=== PATIENT | male | born 1945 | race Caucasian/White ===

== ENCOUNTER 2024-04-20 14:41 | Outpatient (CLI) | payer MEDICARE, SELFPAY ==
--- NOTE | ~2024-04-20 | XR_ITS ---
EXAMINATION: XR_CERV2-3V_CR DATE: 04/20/2024 14:59 INDICATION: Neck pain. TECHNIQUE: 4 views of cervical spine were obtained. COMPARISON: None. FINDINGS: There is 7 degrees levocurvature of cervicothoracic spine kyphosis of cervical spine. There is 2 mm retrolisthesis of C5 on C6. Vertebral body heights are normal. There is mildly decreased dis c height at C3-C4 and C4-C5 and severely decreased disc height at C5-C6. 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 There is mild central stenosis at C4-C5 and C5-C6. No prevertebral soft ti ssue swelling. IMPRESSION: 1. Severe cervical spondylosis. Reviewed, dictated and finalized at location A. RANCE AUDITOR
== END 2024-04-20 14:42 | disposition home or self-care (01) ==
LOC: MICIMG 14:42
PROVIDERS: PCP Family Medicine; Visit Provider Family Medicine
DX: M43.02 Spondylolysis, cervical region (principal)
CPT/HCPCS: 72040

== ENCOUNTER 2024-08-26 13:47 | Outpatient (CLI) | payer MEDICARE, SELFPAY ==
--- OUTSIDE RECORDS SUMMARY | 2024-08-26 13:51 | XMS_ITS | Encounter Summary ---
Author Organization [facility] Address [address] [facility] [place] [address] Care Team Providers Care Pediatric Medical Assistant Name Role Phone Unavailable Primary Care Provider Unavailabl e Encounter Details Date Type Department Care Team (Late st Contact Info) Description 02/05/2024 Lab Requisition [facility] - DermPath Lab [address] [place] [phone] Masood Mortensen MD [facility] [address] [place] [phone] Neoplasm of uncertain behavior of skin Social History Tobacco Use Types Packs/Day Years Used Date Smoking Tobacco: Never Assessed Sex and Gender Information Value Date Recorded Sex Assigned at Not on file Gender Identity Not on file Sexual Orientation Not on file documented as of this encounter Plan of Treatment Not on file documented as of this encounter Procedures Procedure Name Priority Date/Time Associated Diagnosis Comments DERMATOPATHOLOGY Routine 02/05/2024 3:33 AM CDT Neoplasm of uncertain behavior of skin documented in this encounter Results * DERMATOPATHOLOGY (02/05/2024 3:33 AM CDT) Case Report Dermatopathology Report Case: [id number] Authorizing Provider: Masood Mortensen MD Collected: 02/05/2024 03:33 AM Ordering Location: [facility] Physician [facility] - Received: 02/08/2024 12:30 PM DermPath Lab Pathologist: Josephine Graves MD Specimen: Skin, right anterior neck 12:47 PM CDT DERMATOPATHOLOGY LABORATORY Final Diagnosis Specimen A. 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 The specimen consists of a shave biopsy measuring 5x4x2 mm. Jar 0. 12:47 PM CDT DERMATOPATHOLOGY LABORATORY Microscopic Description Specimen A. SKIN, right anterior neck: The epidermis shows parakeratosis, full thickness disorderly maturation of keratinocytes, mitoses at different levels, and dyskeratotic cells. The lesion extends to the base of the biopsy. COMMENT: An invasive squamous cell carcinoma cannot be ruled out. 12:47 PM CDT DERMATOPATHOLOGY LABORATORY Disclaimer An external and internal positive and negative controls are appropriate for the histochemical, immunohistochemical and immunofluorescence stain(s) in this case (if any), except where stated explicitly. The performance characteristics of the stain(s) cited in this report were developed and its performance characteristic determined by the Dermatopathology Laboratory at [facility], directed by Dr. Suze Arriaga. These tests need not be, and therefore are not, approved by the [place] Food and Drug Administration. The tests are used for clinical purposes. Billing Codes Specimen Charges Stain Charges 33124 1 12:47 PM CDT DERMATOPATHOLOGY LABORATORY Embedded Images 12:47 PM CDT DERMATOPATHOLOGY LABORATORY Pathology/Cytolo gy TISSUE SPECIMEN FROM SKIN / Unknown 02/05/2024 3:33 AM CDT 02/08/2024 12:30 PM CDT Masood Mortensen MD LAB - PATHOLOGY/CYTO LOGY ORDERABLES DERMATOPATHOLOGY LABORATORY [facility] - Department of Dermatology [address] [place] [address], [facility] [phone] documented in this encounter Visit Diagnoses Diagnosis Neoplasm of uncertain behavior of skin documented in this encounter
--- OUTSIDE RECORDS SUMMARY | 2024-08-26 13:51 | XMS_ITS | Encounter Summary ---
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 Social History Tobacco Use Types Packs/Day Years Used Date Smoking Tobacco: Never Assessed Sex and Gender Information Value Date Recorded Sex Assigned at Not on file Gender Identity Not on file Sexual Orientation Not on file documented as of this encounter Plan of Treatment Not on file documented as of this encounter Procedures Procedure Name Priority Date/Time Associated Diagnosis Comments DERMATOPATHOLOGY Routine 04/15/2024 12:0 0 AM WATCH PARTS GRINDER Carcinoma in situ of skin of scalp and neck documented in this encounter Results * DERMATOPATHOLOGY (04/15/2024 12:00 AM WATCH PARTS GRINDER) Case Report Dermatopathology Report Case: [id number] Authorizing Provider: Sherlyn Uribe MD Collected: 04/15/2024 12:00 AM Ordering Location: [facility] - Received: 04/18/2024 12:55 PM DermPath Lab Pathologist: Izzy De La Torre MD Specimen: Skin, right anterior neck 1:38 PM WATCH PARTS GRINDER DERMATOPATHOLOGY LABORATORY Final Diagnosis Specimen A. SKIN, right anterior neck: DERMAL SCAR RESIDUAL SQUAMOUS CELL CARCINOMA NOT IDENTIFIED (L90.5) 4 1:38 PM WATCH PARTS GRINDER DERMATOPATHOLOGY LABORATORY Clinical History SCCIS, cannot r/o underlying invasive component Check margins 1:[address] [facility] DERMATOPATHOLOGY LABORATORY Gross Description Specimen A: Received is one formalin filled container labeled with the patient's name and designated right anterior neck. The specimen consists of a non-oriented ellipse of skin measuring [id number] mm. The epidermal surface is unremarkable. The margin is inked green. The 12 o'clock and 6 o'clock tips are submitted in cassette 1. The remainder of the ellipse is serially sectioned and submitted in cassette 2. Jar 0. 1:[address] [facility] DERMATOPATHOLOGY LABORATORY Microscopic Description Specimen A. SKIN, right anterior neck: There are fibroblasts and collagen bundles oriented parallel to the skin surface. There are elongated blood vessels, some of which are oriented perpendicular to the skin surface. No residual squamous cell carcinoma is identified. 1:[address] [facility] DERMATOPATHOLOGY LABORATORY Disclaimer An external and internal positive and negative controls are appropriate for the histochemical, immunohistochemical and immunofluorescence stain(s) in this case (if any), except where stated explicitly. The performance characteristics of the stain(s) cited in this report were developed and its performance characteristic determined by the Dermatopathology Laboratory at [facility], directed by Dr. Suze Arriaga. These tests need not be, and therefore are not, approved by the [place] Food and Drug Administration. The tests are used for clinical purposes. Billing Codes Specimen Charges Stain Charges 10856 1 1:[address] [facility] DERMATOPATHOLOGY LABORATORY Embedded Images 1:[address] 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
--- OUTSIDE RECORDS SUMMARY | 2024-08-26 13:51 | XMS_ITS | Clinical Summary ---
Author Organization [facility] Address [address] [place] [address] Care Team Providers Care Toll Test Worker Name Role Phone Unavailable Primary Care Provider Unavailabl e Source Comments [facility],non-owned Affiliates and Associated Physician Practices is amultiple site organization consisting of ambulatory clinics and hospital sitesin [place], [place], [place] and [place]. This disclosure is being madepursuant to the Care Everywhere program and may not contain all information available regarding this patient. Last updated 18.[facility] Social History Tobacco Use Types Packs/Day Years Used Date Smoking Tobacco: Never Assessed Sex and Gender Information Value Date Recorded Sex Assigned at Not on file Gender Identity Not on file Sexual Orientation Not on file Plan of Treatment Health Maintenance Due Date Last Done Comments HEPATITIS C SCREENING 07/29/1964 DTAP/TDAP/TD VACCINES (1 - Tdap) 1965 PNEUMOCOCCAL VACCINE 50+ (1 of 1 - PCV) 1996 ZOSTER VACCINE (1 of 2) 1996 Respiratory Syncytial Virus (RSV) Vaccine Pt: or over 60 yrs (1 - 1-dose 75+ series) 2021 COVID-19 VACCINE ( - 2023-2 5 season) 2024 INFLUENZA VACCINE (#1) 2024 DEPRESSION SCREENING 06/01/2024 MEDICARE AWV CALENDAR YEAR 2024 HEPATITIS B VACCINE Aged Out No longe r eligible based on patient's age to complete this topic HIB VACCINE Aged Out No longer eligi ble based on patient's age to complete this topic HPV VACCINE Aged Out No longer eligi ble based on patient's age to complete this topic MENINGOCOCCAL (Group B) VACC INE SHARED DECISION-MAKING Aged Out No longer eligibl e based on patient's age to complete this topic MENINGOCOCCAL GROUPS A/C/Y/W VACCINE Aged Out No longer eligible b ased on patient's age to complete this topic
--- OUTSIDE RECORDS SUMMARY | 2024-08-26 13:51 | XMS_ITS | Encounter Summary ---
Author Organization [facility] Address [address] [facility] [place] [address] Care Team Providers Care Burning Plant Operator Name Role Phone Unavailable Primary Care Provider Unavailabl e Encounter Details Date Type Department Care Team (Late st Contact Info) Description 07/10/2022 Lab Requisition [facility] DermPath Lab [address] [facility] [place] [phone] Henrietta Mortensen APRN-CNP [facility] DERMATOLOG[facility] [address] [place] [phone] Social History Tobacco Use Types Packs/Day Years Used Date Smoking Tobacco: Never Assessed Sex and Gender Information Value Date Recorded Sex Assigned at Not on file Gender Identity Not on file Sexual Orientation Not on file documented as of this encounter Plan of Treatment Not on file documented as of this encounter Procedures Procedure Name Priority Date/Time Associated Diagnosis Comments DERMATOPATHOLOGY Routine 07/09/2022 3:33 AM MEDICAL FILE CLERK documented in this encounter Results * DERMATOPATHOLOGY (07/09/2022 3:33 AM MEDICAL FILE CLERK) Case Report Dermatopathology Report Case: [id number] Authorizing Provider: Henrietta Joe, Collected: 07/09/2022 03:33 AM FLORECITA Ordering Location: [facility] DermPath Lab Received: 07/10/2022 01:12 PM Pathologist: Warren Arriaga MD Specimen: Skin, right jaw 3 5:26 PM MEDICAL FILE CLERK DERMATOPATHOLOGY LABORATORY Final Diagnosis Specimen A. 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 The specimen consists of a shave biopsy measuring 10x8x1 mm. Jar 0. 3 5:26 PM [facility] DERMATOPATHOLOGY LABORATORY Microscopic Description Specimen A. SKIN, right jaw: The epidermis shows parakeratosis, full thickness disorderly maturation of keratinocytes, mitoses at different levels, and dyskeratotic cells. 3 5:26 PM [facility] DERMATOPATHOLOGY LABORATORY Disclaimer An external and internal positive and negative controls are appropriate for the histochemical, immunohistochemical and immunofluorescence stain(s) in this case (if any), except where stated explicitly. The performance characteristics of the stain(s) cited in this report were developed and its performance characteristic determined by the Dermatopathology Laboratory at [facility], directed by Dr. Suze Arriaga. These tests need not be, and therefore are not, approved by the [place] Food and Drug Administration. The tests are used for clinical purposes. Billing Codes Specimen Charges Stain Charges 26348 1 3 5:26 PM [facility] DERMATOPATHOLOGY LABORATORY Embedded Images 3 5:26 PM [facility] DERMATOPATHOLOGY LABORATORY Pathology/Cytolo gy TISSUE SPECIMEN FROM SKIN / Unknown 07/09/2022 3:33 AM MEDICAL FILE CLERK 07/10/2022 1:12 PM MEDICAL FILE CLERK Henrietta Mortensen PILOT BOAT OPERATOR-NEWSPAPER DELIVERY DRIVER LAB - PATH OLOGY/CYTOLOGY ORDERABLES DERMATOPATHOLOGY LABORATORY [facility] - Department of Dermatology [address] [phone] documented in this encounter Visit Diagnoses Not on filedocumented in this encounter
--- NOTE | 2024-08-26 14:41 | ECHO_ITS ---
Patient Info Name: Grabiel Arboleda Age: 79 years : 1945 Gender: Male Ht: 67 in Wt: 145 lbs BSA: 1.77 m2 HR: 55 bpm BP: 140 / 74 mmHg Heart Rhythm: Sinus Rhythm Technical Quality: Fair Exam Date: 08/26/2024 2:02 PM Exam Location: Echo Lab Patient Status: Outpatient Admit Date: 08/26/2024 Staff Ordering Physician: Delonte Witt PA-C Supply Controller: Giulia Miller RDCS Attending Provider: Delonte Witt PA-C Referring Physician: Eduar SANDERS; Exam Type: CA echo doppler color flow Study Info Indications - Abnormal EKG Complete two-dimensional, color flow and Doppler transthoracic echocardiogram is performed. Summary 1. Complete two-dimensional, color flow and Doppler transthoracic echocardiogram is performed. 2. Left ventricular chamber dimension is normal. 3. Left ventricular systolic function is normal, estimated at 65-70%. 4. There is no increased left ventricular wall thickness. 5. The left ventricular diastolic function is grade I diastolic dysfunction. 6. There is mild aortic valve regurgitation. 7. There is mild tricuspid valve regurgitation. Left Ventricle Left ventricular chamber dimension is normal. Left ventricular systolic function is normal, estimated at 65-70%. There is no increased left ventricular wall thickness. The left ventricular diastolic function is grade I diastolic dysfunction. Right Ventricle Right ventricular chamber dimension is normal. Right ventricular systolic function is normal. Left Atria Left atrial chamber dimension is normal. Right Atria Right atrial chamber dimension is normal. Atrial Septum Intact interatrial septum visualized by color flow imaging. Aortic Valve The aortic valve is trileaflet. There is mild aortic valve sclerosis. There is no aortic valve stenosis. There is mild aortic valve regurgitation. Pulmonic Valve The pulmonic valve is normal. There is no pulmonic valve stenosis. There is trace pulmonic regurgitation. Mitral Valve The mitral valve has normal leaflets. There is no mitral valve stenosis. There is trace mitral valve regurgitation. Tricuspid Valve The tricuspid valve leaflets are normal. There is no significant tricuspid valve stenosis. There is mild tricuspid valve regurgitation. No pulmonary hypertension, estimated pulmonary arterial systolic pressure is 23 mmHg. Pericardium/Pleural The pericardium appears normal. There is no pericardial effusion. Inferior Vena Cava Normal inferior vena cava with >50% collapse upon inspiration consistent with normal right atrial pressure, 5 mmHg. Aorta The aortic root size at the sinus of Valsalva is normal. Left Ventricular Outflow Tract Name Value Normal LVOT 2D LVOT Diameter 2.0 cm LVOT Doppler LVOT Peak Gradient 2 mmHg LVOT Mean Gradient 1 mmHg LVOT VTI 17 cm LVOT VTI/AV VTI Ratio 0.7 LVOT Stroke Volume 54 ml LVOT CO 3.0 l/min LVOT CI 1.7 l/min/m2 Pulmonic Valve Name Value Normal RVOT Doppler RVOT Peak Gradient 1 mmHg PV Doppler PV Peak Gradient 2 mmHg Mitral Valve Name Value Normal MV Doppler MV Decel Allen 232 cm/s2 MV PHT 77 ms MV Area (PHT) 2.9 cm2 4.0-5.0 MV Diastolic Function MV E Peak Velocity 61 cm/s MV A Peak Velocity 70 cm/s MV E/A 0.9 MV Decel Time 264 ms MV Annular TDI MV E/e' (Septal) 7.1 <=8.0 MV E/e' (Lateral) 6.8 <=8.0 MV E/e' (Average) 7.0 Tricuspid Valve Name Value Normal TV Regurgitation Doppler TR Peak Velocity 210 cm/s TR Peak Gradient 18 mmHg Estimated PAP/RSVP RA Pressure 5 mmHg <=5 PA Systolic Pressure 23 mmHg <36 RV Systolic Pressure 23 mmHg <36 Aortic Valve Name Value Normal AV Doppler AV Peak Velocity 101 cm/s AV Peak Gradient 3 mmHg AV Mean Gradient 1 mmHg AV VTI 23 cm AV Area (Cont Eq VTI) 2.3 cm2 >=3.0 AV Area (Cont Eq Hugo) 2.2 cm2 AV Regurgitation 2D LVOT Area 3.1 cm2 Ventricles Name Value Normal LV Dimensions 2D/MM IVS Diastolic Thickness (2D) 1.0 cm 0.6-1.0 LVID Diastole (2D) 3.7 cm 4.2-5.8 LVIW Diastolic Thickness (2D) 0.8 cm 0.6-1.0 LVID Systole (2D) 2.7 cm 2.5-4.0 LVOT Diameter 2.0 cm LV Mass (2D Cubed) 99.98 g 88.00-224.00 LV Mass Index (2D Cubed) 57 g/m2 49-115 Relative Wall Thickness (2D) 0.45 LV Fractional Shortening/Ejection Fraction 2D/MM LV Fractional Shortening (2D) 29 % 25-43 LV EF (2D Teicholz) 56 % 52-72 LV Diastolic Volume (4C MOD) 111 ml LV EF (4C MOD) 65 % LV Diastolic Volume (2C MOD) 85 ml LV EF (2C MOD) 69 % LV Diastolic Volume (BP MOD) 101 ml 62-150 LV Diastolic Volume Index (BP MOD) 57 ml/m2 34-74 LV Systolic Volume (BP MOD) 33 ml 21-61 LV Systolic Volume Index (BP MOD) 19 ml/m2 11-31 LV EF (BP MOD) 67 % 52-72 LV Diastolic Length (4C) 8.2 cm LV Systolic Length (4C) 6.9 cm LV Stroke Volume (4C MOD) 73 ml Atria Name Value Normal LA Dimensions LA Volume (4C A-L) 46 ml LA Volume (BP A-L) 55 ml RA Dimensions RA Area (4C) 17.5 cm2 <=18.0 Report Signatures
== END 2024-08-26 13:48 | disposition home or self-care (01) ==
PROVIDERS: PCP Family Medicine; Visit Provider Physician Assistant
DX: R00.1 Bradycardia, unspecified (principal); R53.83 Other fatigue; R42 Dizziness and giddiness; R41.89 Other symptoms and signs involving cognitive functions and awareness; R94.31 Abnormal electrocardiogram [ECG] [EKG]; I08.2 Rheumatic disorders of both aortic and tricuspid valves
CPT/HCPCS: 93242; 93306

== ENCOUNTER 2024-09-16 08:32 | Outpatient (CLI) | payer MEDICARE, SELFPAY ==
--- NOTE | ~2024-09-16 | MR_ITS ---
MRI of the brain Clinical History: Weakness Technique: Axial and sagittal T1-weighted images were acquired. These were followed by axial T2-weigh ricardo, diffusion weighted, gradient, and FLAIR images. Following intravenous administration of 14 cc Pr oHance gadolinium, T1-weighted fat-sat imaging was performed in the axial and coronal planes. Findings: No abnormal signal seen in the brain parenchyma. No acute infarct, internal hemorrhage, or mass lesion. Ventricles and subarachnoid spaces are mildly dilated. Orbits are unremarkable. Paranasal sinuses and mastoid air cells are clear. Major intracranial flow voids are intact. Sagittal midline structures are intact. No abnormal postcontrast enhancement identified. IMPRESSION: Mild generalized atrophy, otherwise unremarkable exam. Reviewed, dictated and finalized at location .
--- NOTE | ~2024-09-16 | MR_ITS ---
MRI of the cervical spine Clinical History: Cervicalgia Technique: Axial T2-weighted and gradient images, and sagittal T1-weighted, T2-weighted, and STIR jose ges were acquired. Findings: There is mild reversal normal cervical lordosis. There is 2 mm anterolisthesis of C4 over C 5. There is 2 mm retrolisthesis of C5 over C6. No suspicious bone marrow signal abnormality seen. At C2-C3, there is no disc bulge or herniation. No spinal canal stenosis, cord compression, or neural foraminal narrowing. At C3-C4, there is advanced degenerative disc narrowing. No significant disc bulge or herniation. No spinal canal stenosis or cord compression. Probable minimal bilateral neural foraminal narrowing with mild facet arthropathy, right worse than left. At C4 and C5, there is advanced degenerative disc narrowing, with mild disc osteophyte convex. No fra nk canal stenosis or cord compression. There is bilateral neural foraminal narrowing, right worse kyra n left. At C5-C6, there is severe degenerative disc narrowing. There is mild disc osteophyte convex. There is mild canal stenosis without ash cord compression. There is bilateral neural foraminal narrowing. At C6-C7, there is no disc bulge or herniation. No spinal canal stenosis, cord compression, or neural foraminal narrowing. No abnormal signal seen in the spinal cord. Paravertebral soft tissues are unremarkable. Impression: Moderate degenerative spondylosis, as detailed above. Reviewed, dictated and finalized at [facility]. Impression: Moderate degenerative spondylosis, as detailed above.
--- OUTSIDE RECORDS SUMMARY | 2024-09-16 08:39 | XMS_ITS | Encounter Summary ---
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 Social History Tobacco Use Types Packs/Day Years Used Date Smoking Tobacco: Never Assessed Sex and Gender Information Value Date Recorded Sex Assigned at Not on file Legal Sex Male 4:36 PM VENEER STACKER Gender Identity Not on file Sexual Orientation Not on file documented as of this encounter Plan of Treatment Not on file documented as of this encounter Procedures Procedure Name Priority Date/Time Associated Diagnosis Comments DERMATOPATHOLOGY Routine 04/15/2024 12:0 0 AM VENEER STACKER Carcinoma in situ of skin of scalp and neck documented in this encounter Results * DERMATOPATHOLOGY (04/15/2024 12:00 AM VENEER STACKER) Case Report Dermatopathology Report Case: [id number] Authorizing Provider: Sherlyn Uribe MD Collected: 04/15/2024 12:00 AM Ordering Location: [facility] Physician [facility] - Received: 04/18/2024 12:55 PM DermPath Lab Pathologist: Izzy De La Torre MD Specimen: Skin, right anterior neck 4 1:38 PM VENEER STACKER DERMATOPATHOLOGY LABORATORY Final Diagnosis Specimen A. SKIN, right anterior neck: DERMAL SCAR RESIDUAL SQUAMOUS CELL CARCINOMA NOT IDENTIFIED (L90.5) 4 1:38 PM VENEER STACKER DERMATOPATHOLOGY LABORATORY Clinical History SCCIS, cannot r/o underlying invasive component Check margins 4 1:38 PM [facility] DERMATOPATHOLOGY LABORATORY Gross Description Specimen A: Received is one formalin filled container labeled with the patient's name and designated right anterior neck. The specimen consists of a non-oriented ellipse of skin measuring [id number] mm. The epidermal surface is unremarkable. The margin is inked green. The 12 o'clock and 6 o'clock tips are submitted in cassette 1. The remainder of the ellipse is serially sectioned and submitted in cassette 2. Jar 0. 4 1:38 PM [facility] DERMATOPATHOLOGY LABORATORY Microscopic Description Specimen A. SKIN, right anterior neck: There are fibroblasts and collagen bundles oriented parallel to the skin surface. There are elongated blood vessels, some of which are oriented perpendicular to the skin surface. No residual squamous cell carcinoma is identified. 1:38 PM [facility] DERMATOPATHOLOGY LABORATORY Disclaimer An external and internal positive and negative controls are appropriate for the histochemical, immunohistochemical and immunofluorescence stain(s) in this case (if any), except where stated explicitly. The performance characteristics of the stain(s) cited in this report were developed and its performance characteristic determined by the Dermatopathology Laboratory at [facility], directed by Dr. Suze Arriaga. These tests need not be, and therefore are not, approved by the [place] Food and Drug Administration. The tests are used for clinical purposes. Billing Codes Specimen Charges Stain Charges 01727 1 4 1:38 PM [facility] DERMATOPATHOLOGY LABORATORY Embedded Images 4 1:38 PM [facility] DERMATOPATHOLOGY LABORATORY Pathology/Cytolog y TISSUE SPECIMEN FROM SKIN / Unknown 04/15/2024 04/18/2024 12:55 PM [facility] us Sherlyn Uribe MD LAB - PATHOLOGY/CYTOLOGY ORDERAB LES Final Result DERMATOPATHOLOGY LABORATORY [facility] - Department of Dermatology [address] [phone] documented in this encounter Visit Diagnoses Diagnosis 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
--- OUTSIDE RECORDS SUMMARY | 2024-09-16 08:39 | XMS_ITS | Encounter Summary ---
Author Organization [facility] Address [address] [facility] [place] [address] Care Team Providers Care Manager File Name Role Phone Unavailable Primary Care Provider Unavailabl e Encounter Details Date Type Department Care Team (Late st Contact Info) Description 02/05/2024 Lab Requisition [facility] Physician [facility] - DermPath Lab [address] [place] [phone] Masood Mortensen MD [facility] DERMATOLOGY [address] [place] [phone] Neoplasm of uncertain behavior of skin Social History Tobacco Use Types Packs/Day Years Used Date Smoking Tobacco: Never Assessed Sex and Gender Information Value Date Recorded Sex Assigned at Not on file Legal Sex Male 4:36 PM ACADEMIC ADVISEMENT DIRECTOR Gender Identity Not on file Sexual Orientation Not on file documented as of this encounter Plan of Treatment Not on file documented as of this encounter Procedures Procedure Name Priority Date/Time Associated Diagnosis Comments DERMATOPATHOLOGY Routine 02/05/2024 3:33 AM CDT Neoplasm of uncertain behavior of skin documented in this encounter Results * DERMATOPATHOLOGY (02/05/2024 3:33 AM CDT) Case Report Dermatopathology Report Case: [id number] Authorizing Provider: Masood Mortensen MD Collected: 02/05/2024 03:33 AM Ordering Location: [facility] - Received: 02/08/2024 12:30 PM DermPath Lab [...] characteristic determined by the Dermatopathology Laboratory at [facility], directed by Dr. Suze Arriaga. These tests need not be, and therefore are not, approved by the [place] Food and Drug Administration. The tests are used for clinical purposes. Billing Codes Specimen Charges Stain Charges 81816 1 12:47 PM CDT DERMATOPATHOLOGY LABORATORY Embedded Images 12:47 PM CDT DERMATOPATHOLOGY LABORATORY Pathology/Cytolo gy TISSUE SPECIMEN FROM SKIN / Unknown 02/05/2024 3:33 AM CDT 02/08/2024 12:30 PM CDT us Masood Mortensen MD LAB - PATHOLOGY/CYTOLOGY NELIDA GOMES Final Result DERMATOPATHOLOGY LABORATORY [facility] - Department of Dermatology [address], [address] [phone] documented in this encounter Visit Diagnoses Diagnosis Neoplasm of uncertain behavior of skin documented in this encounter
--- OUTSIDE RECORDS SUMMARY | 2024-09-16 08:39 | XMS_ITS | Clinical Summary ---
Author Organization [facility] Address [address] [place] [address] Care Team Providers Care Programming Instructor Name Role Phone Unavailable Primary Care Provider Unavailabl e Source Comments [facility] [employer],non-owned Affiliates and Associated Physician Practices is amultiple site organization consisting of ambulatory clinics and hospital sitesin [place], [place], [place] and [place]. This disclosure is being madepursuant to the Care Everywhere program and may not contain all information available regarding this patient. 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
--- OUTSIDE RECORDS SUMMARY | 2024-09-16 08:39 | XMS_ITS | Continuity of Care Document ---
Author Organization [facility] Address [address] [place] [phone] Phone Care Team Providers Care Weight Control Engineer Name Role Phone Stradling DO, Amauri Unavailable Unavailable Allergies, Adverse Reactions, Alerts Substance Reaction Status Criticality No Known Allergies Active No Inform ation Medications Medication Instructions Dosage Effective Dates (start - stop) Status Comments Bepreve 1.5 % Eye Drops One drop BID OU. 11 - Active Tobradex ST 0.3 %-0.05 % Eye Drops OU - Active Procedures Procedure Date Offic/outpt E&m Estab Low-mod 1 Offic/outpt E&m Estab Low-mod 1 Ophth Serv Med Exam; Interm E 1 Ophth Serv Med Exam; Comp Est 0 Determ Refractive State A/R Sunstar A/R Sunstar Offic/outpt E&m Estab Low-mod 0 Offic/outpt E&m New Mod Sever 0 Advance Directives Directive Yes / No Effective Date File Name No Information Encounters Encounter Description Practice Location Reason(s) For Visit Diagnoses Date Provider Providers Copied on Encounter [facility] , [address], [place], [id number], [place] tel:[phone] [facility] No Information Jul- 4 Stradling DO Amauri. [address], [place], [id number], [place]. tel:[phone] Offic/outpt E&m Estab Low-mod [facility] , [address], [place], [id number], [place] tel:[phone] [facility] SPKBlepharitis, Unspec Oct-3 0-201 1 Stradling DO Amauri. [address], [place], [place], [id number], [place]. tel:[phone] Offic/outpt E&m Estab Low-mod [facility] , [address], [place], [id number], [place] tel:[phone] [facility] SPKBlepharitis, UnspecConjunctiv itis, Allergic Oct- 6- 1 Stradling DO Amauri. [address], [place], [id number], [place]. tel:[phone] [facility] , [address], [place], [id number], [place] tel:[phone] [facility] Dry Eye SyndromeBlephari tis, Unspec Oct-0 2- 1 Stradling DO Amauri. [address], [place], [id number], [place]. tel:[phone] [facility] , [address], [place], [id number], [place] tel:[phone] [facility] PresbyopiaMyopia Astigmatism, Unspec May- 6 0 No Information [facility] , [address], [place], [id number], [place] tel:[phone] [facility] No Information May- 6 0 No Information Offic/outpt E&m Estab Low-mod [facility] , [address], [place], [id number], [place] tel:[phone] [facility] ChalazionEyelid Tumor, Benign Aug- 0 No Information Offic/outpt E&m [facility] , [address], [place], [id number], [place] tel:[phone] [facility] Cataract, NuclearDry Eye SyndromeChalazio nCysts, Sebaceous, Lid Aug- 0 No Information Family History Family Member Type Diagnosis Age At Onset Problem (finding) Family history of No known significant family history Payers Payer name Insurance type Covered green party ID Authoriza tion(s) No Information Social History Type Description Quantity Date Captured Comments Sex Male Smoking Status No Information Chief Complaint And Reason For Visit No Information Reason For Referral Reason For Referral No Information History Of Present Illness Encounter Date Complaint History Of Prese nt Illness No Information Functional Status Date Functional Assessmen t No Information Instructions Date Instruction Additional Infor mation Conjunctivitis, Yeyo rgic, OU - Bepreve BID OU PRN for itch - Annual and PRN Blepharitis, OU - co ntinue warm compresses. september D/C Tobradex. Related to Blepharitis SPK, OU - There is n o evidence of permanent changes to cornea. Explained no cure, will need artificial tears for maintenance. Related to SPK Conjunctivitis, Yeyo rgic, OU - Pt to start Bepreve BID OU. Sample/Rx given. Related to Conjunctivitis, Allergic SPK, OU - Pt to cont inue use of artificial tears,prn ou. Related to SPK Blepharitis, OU - Mu ch improved OD>OS. Pt to continue Tobradex BID OU. Pt to continue warm compresses along gentle ocular massage on lids and lashes. Related to Blepharitis - 2 weeks follow up with . Related to Blepharitis Blepharitis, OU wors e OS>OD - Discussed diagnosis in detail with patient. Lid scrubs and hygiene were explained. Patient instructed to apply warm compresses. Start Tobradex BID OU Related to Blepharitis Dry Eye Syndrome, OU - Discussed diagnosis in detail with patient. Patient instructed to use artificial tears as needed. Related to Dry Eye Syndrome - 2 weeks Follow Up Related to B lepharitis Astigmatism, OU - Di scussed diagnosis in detail with patient. New glasses Rx was given today. Related to Astigmatism - 1 Year Related to Myopi a Presbyopia, OU - Dis cussed diagnosis in detail with patient. New glasses Rx was given today. Related to Presbyopia Myopia, OU - Discuss ed diagnosis in detail with patient. New glasses Rx was given today. Related to Myopia Eyelid Tumor, Benign , OD (papilloma) - Discussed diagnosis in detail with patient. Will continue to observe condition and or symptoms. No treatment is required at this time. 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 Will continue to observe condition and or symptoms. No surgery treatment is required at this time. Patient instructed to apply warm compresses.continue maxitrol qhs os Related to Chalazion - 1 week chalazion removal Relat ed to Chalazion Chalazion, ALICE - Dis cussed diagnosis in detail with patient. Discussed treatment options with patient. Lid scrubs and hygiene were explained. Patient instructed to apply warm compresses. Discussed possible I&D removal.start maxitrol rowena qhs os Related to Chalazion Dry Eye Syndrome, OU - Discussed diagnosis in detail with patient. Patient instructed to use artificial tears as needed. Related to Dry Eye Syndrome Cataract, Nuclear Sc lerosis, OU - No treatment currently recommended, patient will monitor vision changes and contact us with any decrease in vision. Related to Cataract, Nuclear Sclerosis Lid Lesion, OD (cally lloma) - Discussed diagnosis in detail with patient. Will continue to observe condition and or symptoms. Related to Lid Lesion Assessments Type Assessment Date No Information Patient Care Teams Name Effective Dates (start - stop) Status Members No Information
--- OUTSIDE RECORDS SUMMARY | 2024-09-16 08:39 | XMS_ITS | Encounter Summary ---
Author Organization [facility] Address [address] [facility] [place] [address] Care Team Providers Care Lead Technical Writer Name Role Phone Unavailable Primary Care Provider Unavailabl e Encounter Details Date Type Department Care Team (Late st Contact Info) Description 07/10/2022 Lab Requisition [facility] DermPath Lab [address] [facility] [address], [place] [phone] Henrietta Mortensen APRN-CNP [facility] DERMATOLOGY [address] [place] [phone] Social History Tobacco Use Types Packs/Day Years Used Date Smoking Tobacco: Never Assessed Sex and Gender Information Value Date Recorded Sex Assigned at Not on file Legal Sex Male 4:36 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 Gender Identity Not on file Sexual Orientation Not on file documented as of this encounter Plan of Treatment Not on file documented as of this encounter Procedures Procedure Name Priority Date/Time Associated Diagnosis Comments DERMATOPATHOLOGY Routine 07/09/2022 3:33 AM MANUAL WINDER documented in this encounter Results * DERMATOPATHOLOGY (07/09/2022 3:33 AM MANUAL WINDER) Case Report Dermatopathology Report Case: [id number] Authorizing Provider: Henrietta Joe, Collected: 07/09/2022 03:33 AM FACILITIES LOCATOR-MOTORCYLES FINAL INSPECTOR Ordering Location: [facility] DermPath Lab Received: 07/10/2022 01:12 PM Pathologist: Warren Arriaga MD Specimen: Skin, right jaw 3 5:26 PM MANUAL WINDER DERMATOPATHOLOGY LABORATORY Final Diagnosis Specimen A. 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 The specimen consists of a shave biopsy measuring 10x8x1 mm. Jar 0. 3 5:26 PM [facility] DERMATOPATHOLOGY LABORATORY Microscopic Description Specimen A. SKIN, right jaw: The epidermis shows parakeratosis, full thickness disorderly maturation of keratinocytes, mitoses at different levels, and dyskeratotic cells. 3 5:26 PM [facility] DERMATOPATHOLOGY LABORATORY Disclaimer An external and internal positive and negative controls are appropriate for the histochemical, immunohistochemical and immunofluorescence stain(s) in this case (if any), except where stated explicitly. The performance characteristics of the stain(s) cited in this report were developed and its performance characteristic determined by the Dermatopathology Laboratory at [facility], directed by Dr. Suze Arriaga. These tests need not be, and therefore are not, approved by the [place] Food and Drug Administration. The tests are used for clinical purposes. Billing Codes Specimen Charges Stain Charges 41766 1 3 5:26 PM [facility] DERMATOPATHOLOGY LABORATORY Embedded Images 3 5:26 PM [facility] DERMATOPATHOLOGY LABORATORY Pathology/Cytolo gy TISSUE SPECIMEN FROM SKIN / Unknown 07/09/2022 3:33 AM MANUAL WINDER 07/10/2022 1:12 PM MANUAL WINDER Henrietta Mortensen APRN-MOTORCYLES FINAL INSPECTOR LAB - PATHOLOGY/CY TOLOGY ORDERABLES Final Result DERMATOPATHOLOGY LABORATORY [facility] - Department of Dermatology [address] [place] [address], [facility] [phone] documented in this encounter Visit Diagnoses Not on filedocumented in this encounter
== END 2024-09-16 08:33 | disposition home or self-care (01) ==
PROVIDERS: PCP Family Medicine; Visit Provider Physician Assistant
DX: G89.29 Other chronic pain (principal); M47.812 Spondylosis without myelopathy or radiculopathy, cervical region; M48.02 Spinal stenosis, cervical region; M54.2 Cervicalgia; R53.1 Weakness; R53.83 Other fatigue; K11.7 Disturbances of salivary secretion; R41.3 Other amnesia; R41.89 Other symptoms and signs involving cognitive functions and awareness
CPT/HCPCS: 70553; 72141; A9579

== ENCOUNTER 2024-10-12 09:26 | Outpatient (CLI) | payer MEDICARE, SELFPAY ==
--- OUTSIDE RECORDS SUMMARY | 2024-10-12 09:36 | XMS_ITS | Encounter Summary ---
Author Organization [facility] Address [address] [facility] [place] [address] Care Team Providers Care Atm Servicer Name Role Phone Unavailable Primary Care Provider Unavailabl e Encounter Details Date Type Department Care Team (Late st Contact Info) Description 02/05/[address] 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 Gender Identity Not on file Sexual Orientation Not on file documented as of this encounter Plan of Treatment Not on file documented as of this encounter Procedures Procedure Name Priority Date/Time Associated Diagnosis Comments DERMATOPATHOLOGY Routine 02/05/2024 3:33 AM CDT Neoplasm of uncertain behavior of skin documented in this encounter Results * DERMATOPATHOLOGY (02/05/2024 3:33 AM CDT) Case Report Dermatopathology Report Case: [id number] Authorizing Provider: Masood Mortensen MD Collected: 02/05/2024 03:33 AM Ordering Location: [facility] - Received: 02/08/2024 12:30 PM DermPath Lab [...] characteristic determined by the Dermatopathology Laboratory at [facility], directed by Dr. Suze Arriaga. These tests need not be, and therefore are not, approved by the [place] Food and Drug Administration. The tests are used for clinical purposes. Billing Codes Specimen Charges Stain Charges 02432 1 12:47 PM CDT DERMATOPATHOLOGY LABORATORY Embedded Images 12:47 PM CDT DERMATOPATHOLOGY LABORATORY Pathology/Cytolo gy TISSUE SPECIMEN FROM SKIN / Unknown 02/05/2024 3:33 AM CDT 02/08/2024 12:30 PM CDT us Masood Mortensen MD LAB - PATHOLOGY/CYTOLOGY NELIDA GOMES Final Result DERMATOPATHOLOGY LABORATORY [facility] - Department of Dermatology [address] [phone] documented in this encounter Visit Diagnoses Diagnosis Neoplasm of uncertain behavior of skin documented in this encounter
--- OUTSIDE RECORDS SUMMARY | 2024-10-12 09:36 | XMS_ITS | Encounter Summary ---
Author Organization [facility] Address [address] [facility] [place] [address] Care Team Providers Care Mud Analysis Supervisor Name Role Phone Unavailable Primary Care Provider Unavailabl e Encounter Details Date Type Department Care Team (Late st Contact Info) Description 07/10/2022 Lab Requisition [facility] DermPath Lab [address] 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 Gender Identity Not on file Sexual Orientation Not on file documented as of this encounter Plan of Treatment Not on file documented as of this encounter Procedures Procedure Name Priority Date/Time Associated Diagnosis Comments DERMATOPATHOLOGY Routine 07/09/2022 3:33 AM DISPLAY ARTIST documented in this encounter Results * DERMATOPATHOLOGY (07/09/2022 3:33 AM DISPLAY ARTIST) Case Report Dermatopathology Report Case: [id number] Authorizing Provider: Henrietta Joe, Collected: 07/09/2022 03:33 AM RACKING MACHINE OPERATOR-MEDIA SUPERVISOR Ordering Location: [facility] DermPath Lab Received: 07/10/2022 01:12 PM Pathologist: Warren Arriaga MD Specimen: Skin, right jaw 3 5:26 PM DISPLAY ARTIST DERMATOPATHOLOGY LABORATORY Final Diagnosis Specimen A. 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 The specimen consists of a shave biopsy measuring 10x8x1 mm. Jar 0. 3 5:26 PM [facility] DERMATOPATHOLOGY LABORATORY Microscopic Description Specimen A. SKIN, right jaw: The epidermis shows parakeratosis, full thickness disorderly maturation of keratinocytes, mitoses at different levels, and dyskeratotic cells. 3 5:26 PM [facility] DERMATOPATHOLOGY LABORATORY Disclaimer An external and internal positive and negative controls are appropriate for the histochemical, immunohistochemical and immunofluorescence stain(s) in this case (if any), except where stated explicitly. The performance characteristics of the stain(s) cited in this report were developed and its performance characteristic determined by the Dermatopathology Laboratory at [facility], directed by Dr. Suze Arriaga. These tests need not be, and therefore are not, approved by the [place] Food and Drug Administration. The tests are used for clinical purposes. Billing Codes Specimen Charges Stain Charges 39264 1 3 5:26 PM [facility] DERMATOPATHOLOGY LABORATORY Embedded Images 3 5:26 PM [facility] DERMATOPATHOLOGY LABORATORY Pathology/Cytolo gy TISSUE SPECIMEN FROM SKIN / Unknown 07/09/2022 3:33 AM DISPLAY ARTIST 07/10/2022 1:12 PM DISPLAY ARTIST Henrietta Mortensen APRN-MEDIA SUPERVISOR LAB - PATHOLOGY/CY TOLOGY ORDERABLES Final Result DERMATOPATHOLOGY LABORATORY [facility] - Department of Dermatology [address] [place] [address], [facility] [phone] documented in this encounter Visit Diagnoses Not on filedocumented in this encounter
--- OUTSIDE RECORDS SUMMARY | 2024-10-12 09:36 | XMS_ITS | Encounter Summary ---
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 Social History Tobacco Use Types Packs/Day Years Used Date Smoking Tobacco: Never Assessed Sex and Gender Information Value Date Recorded Sex Assigned at Not on file Legal Sex Male 4:36 PM JUTE BAG CUTTING MACHINE OPERATOR Gender Identity Not on file Sexual Orientation Not on file documented as of this encounter Plan of Treatment Not on file documented as of this encounter Procedures Procedure Name Priority Date/Time Associated Diagnosis Comments DERMATOPATHOLOGY Routine 04/15/2024 12:0 0 AM JUTE BAG CUTTING MACHINE OPERATOR 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 SKIN, right anterior neck: DERMAL SCAR RESIDUAL SQUAMOUS CELL CARCINOMA NOT IDENTIFIED (L90.5) 4 1:38 PM JUTE BAG CUTTING MACHINE OPERATOR DERMATOPATHOLOGY LABORATORY Clinical History SCCIS, cannot r/o underlying invasive component Check margins 4 1:38 PM [facility] DERMATOPATHOLOGY LABORATORY Gross Description Specimen A: Received is one formalin filled container labeled with the patient's name and designated right anterior neck. The specimen consists of a non-oriented ellipse of skin measuring [id number] mm. The epidermal surface is unremarkable. The margin is inked green. The 12 o'clock and 6 o'clock tips are submitted in cassette 1. The remainder of the ellipse is serially sectioned and submitted in cassette 2. Jar 0. 4 1:38 PM [facility] DERMATOPATHOLOGY LABORATORY Microscopic Description Specimen A. SKIN, right anterior neck: There are fibroblasts and collagen bundles oriented parallel to the skin surface. There are elongated blood vessels, some of which are oriented perpendicular to the skin surface. No residual squamous cell carcinoma is identified. 1:38 PM [facility] DERMATOPATHOLOGY LABORATORY Disclaimer An external and internal positive and negative controls are appropriate for the histochemical, immunohistochemical and immunofluorescence stain(s) in this case (if any), except where stated explicitly. The performance characteristics of the stain(s) cited in this report were developed and its performance characteristic determined by the Dermatopathology Laboratory at [facility], directed by Dr. Suze Arriaga. These tests need not be, and therefore are not, approved by the [place] Food and Drug Administration. The tests are used for clinical purposes. 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
--- OUTSIDE RECORDS SUMMARY | 2024-10-12 09:36 | XMS_ITS | Clinical Summary ---
Author Organization [facility] Address [address] [place] [address] Care Team Providers Care Adult Remedial Education Instructor Name Role Phone Unavailable Primary Care Provider Unavailabl e Source Comments [facility] [employer],non-owned Affiliates and Associated Physician Practices is amultiple site organization consisting of ambulatory clinics and hospital sitesin [place], [place], [place] and [place]. This disclosure is being madepursuant to the Care Everywhere program and may not contain all information available regarding this patient. 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
--- NOTE | 2024-11-08 08:49 | WPDSLEEPSTUD ---
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 The patient denies awakening from sleep short of breath. He denies awakening at night with heartburn, belching or cough. He rarely snores but is never loud enough that others complain. He rarely has trouble sleeping when he has a cold. He denies waking up gasping for air throughout the night. He denies having breathing problems at night observed by himself or others. He denies sweating excessively at night. He denies having heart palpitations or irregular heartbeats during the night. He denies falling asleep during the day and while driving. He denies sleep paralysis, cataplexy and hypnagogic/ hypnopompic hallucinations. He denies having trouble at school or work due to sleepiness. He denies feeling afraid of going to sleep. He denies having nightmares. He denies remembering his dreams. He denies having thoughts racing through his mind. He denies feeling sad, depressed or anxious. He denies having muscular tension. He denies noticing parts of his body jerk. He denies kicking during the night. He denies having crawling and aching feelings in his legs and denies having leg pain during the night. He denies grinding his teeth during sleep and denies awakening with morning jaw pain. He denies being bothered by pain during the day and denies being awakened by pain during the night. He denies waking up feeling stiff in the morning. He denies waking up with sore or achy muscles. He occasionally wakes up with pain in the neck, spine and other joints. He goes to bed at 10:00 p.m. on both weekdays and weekends. It takes him 30 minutes to fall asleep. He wakes up 2-4 times throughout the night for unknown reasons and is able to fall back asleep within 5 minutes. He wakes up at 7:00 a.m. on weekdays and at 7:30 a.m. on the weekends. He typically gets 8-9 hours of sleep per night. He does not stay in bed after waking up in the morning. He currently lives with his . He will consume caffeinated beverages within 2 hours of bedtime. He denies engaging in physical exercise before bedtime. He will read before falling asleep. He denies watching television before falling asleep. He denies taking naps in the afternoon or the evening. He does consume caffeinated beverages throughout the day. He denies tobacco, alcohol and recreational drug use. [facility] Past Medical History Medical History Pure hypercholesterolemia SCC (squamous cell carcinoma) Squamous cell carcinoma Surgical History Surgical History Status post Mohs surgery Status post hernia repair Family History Family History Sibling Asthma Social History Social History Social History: Caffeine-coffee/tea Smoking status: Never smoker Second hand tobacco smoke exposure: No Alcohol intake: never Substance use: never Substance use type: does not use Do You Feel Safe in your Home?: Yes Lack of Transportation: No Lack of Food: Never True Current Housing: I Have Housing Concerned About Future Housing: No Difficulty Paying Gas/Electric Bills: No Difficulty Paying for Meds: No Currently Unemployed: No Education: Master's Degree or Higher Difficulty w/ Childcare or Family Care: No Living arrangements: with family Occupation/Education: retired Gender identity (if verbalized by the patient): Male Sexual Orientation (if Verbalized by the Patient): Straight or Heterosexual Medications Home Medications ?Medication ?Instructions ?Recorded ?Confirmed ?Type methocarbamol 500 mg tablet 500 mg PO QID PRN muscle spasm #60 08/29/24 09/29/24 Rx tabs Sleep Procedure A full night polysomnogram using the RxResults multi-channel system recorded the standard physiologic parameters including EEG, EOG, submentalis EMG, anterior tibialis EMG, EKG, body position, nasal and oral airflow using nasal pressure sensor and thermistor.? Respiratory parameters of chest and abdominal movements were recorded with Respiratory Inductance Plethysmography belts. Oxygen saturation was recorded by pulse oximetry. Video monitoring was also performed. Sleep stages, periodic limb movements, and EEG arousals were scored in 30 second epochs according to the criteria of the AASM Scoring Manual. The Apnea-Hypopnea Index was calculated using [facility] guidelines for definition of hypopnea with 4% O2 desaturations while scoring respiratory events. Sleep Architecture The total recording time was 438.0 minutes.? The total sleep time was 242.0 minutes. Sleep latency was 26.9 minutes. REM latency was 314.5 minutes. Sleep efficiency was 55.2%. The patient had 12 awakenings for an awakening index of 3.0. Wake after sleep onset time was 169.0 minutes. The patient spent 25.5 minutes, 10.5% of total sleep time in Stage N1. The patient spent 203.0 minutes, 83.9% in Stage N2. The patient spent 4.0 minutes, 1.7% in Stage N3. The patient spent 9.5 minutes, 3.9% in Stage REM sleep. Respiratory Analysis The patient had 8 hypopneas for an overall Apnea Hypopnea Index of 2.0. The REM Apnea Hypopnea Index was 12.6. The NREM Apnea Hypopnea Index was 1.8. The patient had a Central Apnea Hypopnea Index of 0. There was no evidence of Murtaza-Hunter Respirations. Arousals There were 41 total arousals for an arousal index of 10.2. There were 38 spontaneous arousals for an index of 9.4. There were 0 arousals due to respiratory events for an index of 0. There were 2 arousals due to periodic limb movements for an index of 0.5.? There was 1 arousal due to isolated limb movements for an index of 0.2. Periodic Limb Movements The patient had 3 isolated limb movements with an index of 0.7. The patient had 124 periodic limb movements with an index of 30.7, which is elevated (normal < 15). Patient had a total of 127 limb movements with a total limb movement index of 31.5. Oximetry Data The patient had an average oxygen saturation of 94.3% in sleep with a minimum oxygen saturation of 85.0% and a maximum oxygen saturation of 98.0%. The patient had 8 oxygen desaturations that were 4% or greater resulting in an Oxygen Desaturation Index of 2.0.? The patient spent 2.5 minutes, 0.6% of total sleep time with an oxygen saturation below 88%. Snoring Profile Mild snoring was present intermittently throughout the study. Cardiac Profile The EKG showed normal sinus rhythm.?No arrhythmias or premature beats were seen. The patient had an average pulse rate of 50.6 bpm with a minimum pulse of rate of 43.0 bpm and a maximum pulse rate of 84.0 bpm.? EEG Profile No signs of seizure activity seen. Assessment and Plan Assessment and Plan (1) Sleep disturbances: Code(s): G47.9 - Sleep disorder, unspecified Status: Acute Assessment and Plan: The patient had an overall AHI of 2.0 with desaturation down to 85%. This is not consistent with sleep disordered breathing. Despite the patient having a significant amount of periodic limb movements during sleep, the majority if the limb movements did not cause arousals in his sleep. Data The data obtained during this sleep study is adequate for interpretation. Certification This sleep study has been reviewed by a board certified sleep medicine physician.
[2024-11-08 10:58] VITALS: BMI 22.8
== END 2024-10-13 06:19 | disposition home or self-care (01) ==
LOC: ANHCSM 09:28
PROVIDERS: PCP Family Medicine; Visit Provider Internal Medicine Cardiovascular Disease
DX: G47.10 Hypersomnia, unspecified (principal); G47.9 Sleep disorder, unspecified
CPT/HCPCS: 95810

== ENCOUNTER 2025-01-20 19:41 | Emergency (ER) | payer MEDICARE, SELFPAY ==
--- NOTE | 2025-01-20 19:44 | ED.WOUNDLAC ---
HPI - Wound/Laceration General Chief Complaint: Wound/Laceration Stated Complaint: Cut R hand Time Seen by Provider: 01/20/25 19:46 Source: patient Mode of arrival: ambulatory Limitations: no limitations History of Present Illness HPI narrative: 79-year-old male presented for complaint of a laceration to the right hand sustained just prior to arrival. He states he tripped and fell and then cut the hand. He denies hitting his head or loss of consciousness. Reports normal ROM to the hand. Denies deformity. Unsure of last tetanus Related Data Allergies Allergy/AdvReac Type Severity Reaction Status Date / Time No Known Allergies Allergy Verified 01/11/25 09:21 Review of Systems Review of Systems: CONSTITUTIONAL: Denies body aches, fever, chills, or sweats. EYES: Denies visual changes, redness, or discharge. ENT: Denies rhinorrhea, congestion CARDIOVASCULAR: Denies chest pain, palpitations, or edema. RESPIRATORY: Denies cough or dyspnea. GASTROINTESTINAL: Denies abdominal pain, nausea, vomiting, or diarrhea. SKIN: reports skin laceration right hand and knee MUSCULOSKELETAL: Denies back pain, joint pain, or myalgia. NEUROLOGIC: Denies headache, numbness, tingling, or weakness. [facility] Past Medical History Medical History (Updated 01/20/25 @ 19:54 by Ceci Wharton, NAM) BPH associated with nocturia Pure hypercholesterolemia SCC (squamous cell carcinoma) Squamous cell carcinoma Surgical History Surgical History Status post Mohs surgery Status post hernia repair Family History Family History Sibling Asthma Social History Social History Social History: Caffeine-coffee/tea Smoking status: Never smoker Second hand tobacco smoke exposure: No Alcohol intake: never Substance use: never Substance use type: does not use Do You Feel Safe in your Home?: Yes Lack of Transportation: No Lack of Food: Never True Current Housing: I Have Housing Concerned About Future Housing: No Difficulty Paying Gas/Electric Bills: No Difficulty Paying for Meds: No Currently Unemployed: No Education: Master's Degree or Higher Difficulty w/ Childcare or Family Care: No Living arrangements: with family Occupation/Education: retired Gender identity (if verbalized by the patient): Male Sexual Orientation (if Verbalized by the Patient): Straight or Heterosexual Comments At time of signature, I have reviewed and agree with nursing past medical, surgical, social and family history unless otherwise noted. Please see nursing chart for further information. There is no relevant family history pertinent to the presenting complaint Exam Narrative: GENERAL: Well-appearing HEAD: Normocephalic, atraumatic. EYES: conjunctivae clear, and EOMI. ENT: Mucous membranes moist. Oropharynx without edema, erythema or lesions. NECK: Supple. No lymphadenopathy CHEST: Clear to auscultation. HEART: Regular rate and rhythm. SKIN: Warm, dry. Right hand 5cm linear laceration over 4th metacarpal extending to proximal phalanx, active bleeding. CMS intact. Superficial abrasion to right knee NEURO: Alert and oriented x3. Course Course Emergency Course: Patient is aware of diagnosis, understands and agrees to treatment plan. Anticipatory guidance given. Patient agrees to follow-up as directed and is aware of reasons to seek care at the emergency department. Portions of this record may have been created with voice recognition software Level of Care: Express Care Visit Vital Signs Vital signs: Reviewed Procedures Laceration right hand: Size (cm): 5 Description: linear and clean Depth: simple, single layer Local Anesthetic: lidocaine 1% Amount of anesthesia used (mL): 6 Pre-repair: wound explored and irrigated ====== Skin Level ====== Skin layer closed with: nylon Size (cm): 5-0 Number of sutures: 7 Technique: simple, interrupted ====== Subcutaneous Layer ====== ====== Muscle Layer ====== ====== Tendon Layer ====== Dressing: The procedure and its alternatives were reviewed with patient. Risks were reviewed with patient including infection and damage to nearby structures. Patient provided verbal informed consent. The patient was positioned appropriately. Sterile drapes applied to maintain sterile field. Wound was explored for abnormalities including infection and foreign bodies. Sutures placed with wound edges approximated. Patient tolerated well, no complications. Dressing applied per RN. MDM - Wound/Laceration MDM Narrative Medical decision making narrative: Discussed physical exam findings, patient tolerated suture placement. Dressing applied. Tetanus updated today. Advised supportive measures and signs/symptoms to go to the ER. Pt is appropriate for outpt treatment and f/u. Differential Diagnosis Differential diagnosis: Likely laceration, abrasion and avulsion of skin Discharge Plan Discharge Clinical Impression: Hand laceration Patient Disposition: Home Condition: Stable Instructions: Antibiotic Form, Care For Your Stitches (ED), Laceration (ED) Additional Instructions: Your sutures need to be removed in 7-10 days. You can return to the clinic or follow up with your pcp. Wear the dressing that has been applied for the first 24 hours to allow a scab to start forming. After this, you may remove and wash as normal with soap and water. Do NOT wash with peroxide or alcohol. Take tylenol at home for pain Tetanus updated today Follow up with your PCP Go to the ER with any signs of infection such as redness, swelling, increased pain, or drainage. Patient Language: Romansh Prescriptions: No Action methocarbamol 500 mg tablet 500 mg PO QID PRN (Reason: muscle spasm) Qty: 60 2RF tamsulosin 0.4 mg capsule 0.4 mg PO QHS Qty: 30 2RF Follow-up/Referrals: Neto Shirley MD [Primary Care Provider, Family Practice] Time of Disposition: 20:22
[2025-01-20 19:48] VITALS: BP 117/79; PULSE 65; RESP 16; TEMP 36.1; O2SAT 99
[2025-01-20] MEDS: TETANUS,DIPHTHERIA,AC PERTUSSIS ADULT (0.5 ML) BOOSTRIX IM (20:00)
== END 2025-01-20 20:27 | disposition home or self-care (01) ==
PROVIDERS: Emergency Provider Nurse Practitioner Family; PCP Family Medicine
DX: S61.411A Laceration without foreign body of right hand, initial encounter (principal); W01.0XXA Fall on same level from slipping, tripping and stumbling without subsequent striking against object, initial encounter; Z23 Encounter for immunization; N40.1 Benign prostatic hyperplasia with lower urinary tract symptoms; E78.00 Pure hypercholesterolemia, unspecified; Z85.828 Personal history of other malignant neoplasm of skin
CPT/HCPCS: 12002; 90471; 90715; 99212; G0463; J2003